=== PATIENT | male | born 1950 | race Caucasian/White ===

== ENCOUNTER → 2024-02-11 10:59 | Outpatient (REF) | payer OTHER, SELFPAY | LOC: RAD 10:59 | PROVIDERS: ATTENDING PHYSICIAN Family Medicine | DX: R10.31 Right lower quadrant pain (principal) | CPT/HCPCS: 73523 ==

== ENCOUNTER → 2024-04-19 12:31 | Outpatient (REF) | payer OTHER, SELFPAY | LOC: RCS 12:31 | PROVIDERS: ATTENDING PHYSICIAN Specialist; FAMILY PHYSICIAN Family Medicine | DX: Z01.818 Encounter for other preprocedural examination (principal) | CPT/HCPCS: 93005 ==

== ENCOUNTER 2024-10-08 06:18 | Day surgery (SDC) | payer OTHER, SELFPAY ==
[2024-09-29 13:45] VITALS: BMI 21.2
[2024-09-29 14:05] LABS: Hematocrit 39.2 % (39.0-52.0); Hemoglobin 13.4 g/dL (13.0-18.0); Mean Corp Hgb Conc. 34.2 g/dL (33.0-37.0); Mean Corpuscular Hgb 34.2 pg (27.0-31.0); Mean Platelet Volume 10.9 fL (7.4-10.4); Platelet Count 188 10^3/uL (130-400); Red Blood Cell Count 3.92 10^6/uL (4.70-6.10); Red Cell Dist. Width 13.3 % (11.5-14.5); White Blood Cell Count 6.4 10^3/uL (4.8-10.8)
[2024-09-29 14:25] LABS: Blood Urea Nitrogen 19 mg/dl (9-20); Calcium 9.6 mg/dl (8.4-10.2); Carbon Dioxide 21 mmol/L (22-30); Chloride 103 mmol/L (98-107); Estimated Creatinine Clearance 63 ml/min; Glucose 84 mg/dl (70-99); Potassium 4.4 mmol/L (3.5-5.1); Sodium 143 mmol/L (135-145); eGFR > 60.00
--- NOTE | 2024-09-30 13:41 | PTCARENOTE ---
Abnormal EKG reviewed by Dr. Torres, no further action requested.
[2024-10-08] VITALS (9 sets, daily range): BP systolic 132–171; BP diastolic 77–88; BMI 21.2
--- NOTE | 2024-10-08 07:24 | HP.FOC2 ---
Focused History & Physical
Chief Complaint
HPI:
Chief Complaint: Right inguinal hernia
HPI / Indication for Planned Procedure: Patient is a 74-year-old male recently seen in outpatient surgical evaluation secondary to a 10-month history of right inguinal swelling. Worse at the end of the day. Painful at times until he reduces the
hernia at which point his symptoms are alleviated. No associated GI or symptoms.
Relevant Past Medical History: Other (Hyperlipidemia, IBS, hypothyroidism, depression with anxiety)
Relevant Social History: Negative
Relevant Family History: Negative
Relevant Past Surgical History: Positive for (Tonsils, cataracts, right hip replacement)
Review of Systems
Review of Pertinent Systems: All Systems Negative
Medication
See Medication form for detailed medications: Yes
Medication List (including Herbals & OTC):
bupropion HCl 100 mg tablet 100 mg PO BID 10/04/24
melatonin 5 mg tablet 10 mg PO HS 10/04/24
methimazole 5 mg tablet 5 mg PO DAILY 10/04/24
rosuvastatin 5 mg tablet (Crestor) 5 mg PO DAILY 10/04/24
tamsulosin 0.4 mg capsule 0.4 mg PO DAILY 10/04/24
Medications Reviewed: Yes
Allergies and Reactions
Patient has Allergies: No
Noted Allergies and Reactions:
Allergy/AdvReac Type Severity Reaction Status Date / Time
No Known Allergies Allergy Unverified 10/04/24 08:21
Pertinent Physical Exam
All Other Systems: Negative
Head/Neck: Normal
Lungs: Normal
Heart: Normal
Abdomen: Other (Reducible right inguinal hernia)
Extremities: Normal
Neurological: Normal
Diagnosis / Assessment
74-year-old male presented for scheduled operative correction symptomatic right inguinal hernia
Plan / Procedure
Robotic assisted laparoscopic repair right inguinal hernia with mesh
Anesthesia/Sedation to be done by Anesthesia Provider: Yes
--- NOTE | 2024-10-08 07:27 | W.SUR.PREOP ---
Pre-Operative Surgical Note
-
I have examined this patient prior to the performance of the scheduled procedure.
The patient's condition is unchanged from the time of the current History and
Physical and the patient is able to undergo the scheduled procedure.
[2024-10-08] MEDS: TYLENOL 1000 MG PO (07:41)
--- NOTE | 2024-10-08 09:46 | W.IMMPOSTOP ---
Addendum entered and electronically signed by Anam Roy MD 10/08/24 10:19:
#[id number]
Original Note:
Surgical Immed Post Op Note
-
Primary Surgeon: Kirill
Assisting Surgeon: Char TONY
Pre-op Diagnosis: Right inguinal hernia
Post-op Diagnosis: Right inguinal hernia, indirect
Procedure Performed: Robotic assisted laparoscopic HOA repair right inguinal hernia with mesh; 3D max large mid weight
Anesthesia Type: GETA +0.25% Marcaine
Specimen / Cultures: None
Estimated Blood Loss: 4 mL
Complications: None immediate
Operative Findings: Right indirect inguinal hernia. Cecal adhesions in the right lower quadrant which were not lysed. Direct and femoral spaces normal. Left inguinal region normal. 3D max large mid weight mesh repair secured to Erick's ligament
with interrupted 2-0 Vicryl suture and single superior lateral stitch as well. Peritoneal flap closed with 2-0 Monocryl STRATAFIX spiral.
[2024-10-08] MEDS: SUBLIMAZE 25 MCG IV ×2 (10:07→10:17)
== END 2024-10-08 11:50 | disposition home or self-care (01) ==
LOC: SDS 06:18
PROVIDERS: ATTENDING PHYSICIAN Surgery; FAMILY PHYSICIAN Family Medicine
DX: K40.90 Unilateral inguinal hernia, without obstruction or gangrene, not specified as recurrent (principal)
CPT/HCPCS: 49650; 36415; 80048; 85027; 93005; C1781

== ENCOUNTER 2025-01-13 10:26 | Emergency (ER) | payer SELFPAY ==
[2025-01-13 10:35] VITALS: BP 131/84
--- NOTE | 2025-01-13 11:17 | ED.GENMED ---
History of Present Illness
<Emerita Galvan PA-C - Last Filed: 01/13/25 12:44>
General
Chief Complaint: Male Genito-Urinary Symptoms
Source: patient
Exam Limitations: none
Time Seen by Provider: 01/13/25 10:59
History of Present Illness
History of Present Illness:
This is a 74-year-old male with past medical history of IBS, hyperlipidemia, hypothyroidism, inguinal hernia repair on the right who presents emergency department today with concerns of right groin pain for the past hour or so. Patient states that
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 Patient states that he had a lot of pain at the time but since the injury, his pain has been getting better. He is able
to walk without any difficulty. He has had no nausea or vomiting, no fevers or chills. He said no dizziness, lightheadedness, or syncopal episodes. He had a hernia repair with Dr. Roy around 3 months ago and was concerned about possible
disruption to the hernia repair. He denies testicular pain, denies dysuria, hematuria.
Review of Systems
<Emerita Galvan PA-C - Last Filed: 01/13/25 12:44>
Review of Systems
All Other Systems: ROS reviewed and negative except as documented in HPI and ROS
Phy Exam
<Emerita Galvan PA-C - Last Filed: 01/13/25 12:44>
Physical Exam
Physical Exam:
General: Patient is well appearing and in no acute distress; non-toxic
Skin: Warm and dry, no rashes or lesions
Head: Normocephalic, atraumatic
Eyes: Sclera non-icteric. EOMs intact.
Cardiac: Regular rate
Peripheral Vascular:
Pulm: Normal respiratory effort
Abdomen: No abdominal tenderness
Genitourinary: Mild tenderness to palpation in right inguinal region, no palpable mass. No inguinal lymphadenopathy. Normal testicular lie. No testicular masses no tenderness to palpation.
Musculoskeletal: Mild groin pain with right hip extension, no pain with right internal and external rotation
Neuro: CN II-XII intact, no focal neurologic deficits.
Psychiatric: Appropriate mood and affect.
Course
<Emerita Galvan PA-C - Last Filed: 01/13/25 12:44>
Vital Signs
Initial and Last Documented VS:
Initial Vital Signs
Temp Pulse Resp BP Pulse Ox
98 F 78 20 131/84 99
01/13/25 10:35 01/13/25 10:35 01/13/25 10:35 01/13/25 10:35 01/13/25 10:35
Last Documented Vital Signs
Temp Pulse Resp BP Pulse Ox
98 F 78 20 131/84 99
01/13/25 10:35 01/13/25 10:35 01/13/25 10:35 01/13/25 10:35 01/13/25 10:35
<Brent Stratton MD - Last Filed: 01/13/25 12:45>
Vital Signs
Initial and Last Documented VS:
Initial Vital Signs
Temp Pulse Resp BP Pulse Ox
98 F 78 20 131/84 99
01/13/25 10:35 01/13/25 10:35 01/13/25 10:35 01/13/25 10:35 01/13/25 10:35
Last Documented Vital Signs
Temp Pulse Resp BP Pulse Ox
98 F 78 20 131/84 99
01/13/25 10:35 01/13/25 10:35 01/13/25 10:35 01/13/25 10:35 01/13/25 10:35
<Emerita Galvan PA-C - Last Filed: 01/13/25 12:44>
MDM/Problems Addressed
Differential Diagnosis Includes:
ddx include abdominal wall strain, inguinal strain, inguinal lymmphadenopathy
MDM/Problems Addressed:
74-year-old male presents emergency department today with concerns of right groin pain. It started after picking up a heavy box. He denies any nausea or vomiting. He has no fever. On exam he is well-appearing in no acute distress no signs of trauma
no palpable mass no concern for testicular torsion. No indication for imaging at this time. Patient stable for discharge.
Chronic conditions affecting care:
htn, hyperthyroidism
<Emerita Galvan PA-C - Last Filed: 01/13/25 12:44>
*Pulse Oximetry
Patient hypoxic: no
*Critical Care Note
Total Time (30-74mins, 75-104mins- exclusive of procedures): Not Applicable
Data Reviewed
Review of Other/Old Records Reveals: Records (Reviewed history and physical from 10/08/2024 patient seen for evaluation for inguinal surgery, no hospital discharge summary to review)
Source: patient and records
<Emerita Galvan PA-C - Last Filed: 01/13/25 12:44>
Patient Management
Escalation/DeEscalation of care consider admission/obs:
pt stable for discharge
ED Attending Note
<Emerita Galvan PA-C - Last Filed: 01/13/25 12:44>
-
Portions of this chart may have been created with voice recognition software.� Occasional wrong word or��sound alike� substitutions may have occurred due to the inherent limitations of voice recognition software.
<Brent Stratton MD - Last Filed: 01/13/25 12:45>
ED Attending Note
Patient seen and examined by attending physician: Yes
I performed the substantive portion of visit, reviewed & personally made and approve the management plan that is documented in note by myself or ADAM.: Yes
ED Attending Note:
Patient with a history of a hernia repair. Was doing heavy lifting and felt sudden severe pain in his right groin. Mostly gone at this time. Just worried about his hernia. Has noticed no lump. No nausea or vomiting. No general abdominal pain.
On exam patient is nontoxic in no distress. Ambulating normally. Abdomen is soft and nontender. No inguinal swelling. No hernia. Testicles normal. Mild tenderness of the right groin but no swelling ecchymosis warmth or erythema.
Impression is groin strain. I do not feel he had any significant injury or issue with a hernia. Clinically there is no recurrent hernia. No indication for radiologic testing. No lifting pain management and follow-up
Discharge Plan
Departure
Patient Disposition: Home (Routine Discharge)
Date of Disposition: 01/13/25
Time of Disposition: 11:46
Patient with high blood pressure during this ER visit?: Yes
Condition: Good
Discharge Problem:
Right groin pain
Instructions: Groin Strain ED, BLOOD PRESSURE
Prescriptions:
No Action
bupropion HCl 100 mg Tablet
100 mg PO BID
tamsulosin 0.4 mg Capsule
0.4 mg PO DAILY
methimazole 5 mg Tablet
5 mg PO DAILY
rosuvastatin [Crestor] 5 mg Tablet
5 mg PO DAILY
melatonin 5 mg Tablet
10 mg PO HS
acetaminophen [Tylenol Extra Strength] 500 mg tablet
1,000 mg PO Q6HPRN PRN (Reason: mild pain) Qty: 1 0RF
ibuprofen 200 mg tablet
400 - 600 mg PO Q6HPRN PRN (Reason: moderate pain) Qty: 1 0RF
polyethylene glycol 3350 [Miralax] 17 gram/dose powder
4 g PO DAILY PRN (Reason: Constipation) Qty: 119 0RF
Rx Instructions:
start a laxative such as MIRALAX on day 2 after surgery if no bowel movement yet as long as no nausea/vomiting and passing gas
oxycodone 5 mg tablet
5 mg PO Q4HPRN PRN (Reason: breakthrough/severe pain) Qty: 5 0RF
Stand Alone Forms: Return to Work
Activity Restrictions/Additional Instructions:
You can take Tylenol as needed for pain.
PLEASE RETURN TO EMERGENCY DEPARTMENT SHOULD YOU DEVELOP ACUTE WORSENING OF YOUR SYMPTOMS, NAUSEA VOMITING, FEVERS OR CHILLS, LIGHTHEADEDNESS OR DIZZINESS, SYNCOPAL EPISODES, OR ANY OTHER SIGNS OR SYMPTOMS WORRISOME TO YOU.
Interventions
Interventions:
*Risk Screen - Suicide Last Done: 01/13/25 10:35
*General Assessment Last Done: 01/13/25 10:35
*Neglect/Abuse Screening Last Done: 01/13/25 10:35
*Nursing Disposition Last Done: 01/13/25 12:03
Discharge Date and Time
Discharge Date/Time: 01/13/25 12:03
Print Language: HAITIAN
== END 2025-01-13 12:03 | disposition home or self-care (01) ==
LOC: EMR 10:26
PROVIDERS: EMERGENCY PHYSICIAN Emergency Medicine; FAMILY PHYSICIAN Family Medicine
DX: S39.91XA Unspecified injury of abdomen, initial encounter (principal); R10.31 Right lower quadrant pain; X50.0XXA Overexertion from strenuous movement or load, initial encounter; Y93.89 Activity, other specified; Y92.89 Other specified places as the place of occurrence of the external cause; Y99.0 Civilian activity done for income or pay; I10 Essential (primary) hypertension; E03.9 Hypothyroidism, unspecified; K58.9 Irritable bowel syndrome, unspecified; E78.5 Hyperlipidemia, unspecified
CPT/HCPCS: 99282

== ENCOUNTER → 2025-08-03 07:53 | Outpatient (REF) | payer OTHER, SELFPAY | LOC: RAD 07:53 | PROVIDERS: ATTENDING PHYSICIAN Nurse Practitioner Family | DX: M79.605 Pain in left leg (principal) | CPT/HCPCS: 93971 ==

== ENCOUNTER → 2025-09-30 08:01 | Outpatient (REF) | payer OTHER, SELFPAY | LOC: PAVMRI 08:01 | PROVIDERS: ATTENDING PHYSICIAN Student in an Organized Health Care Education/Training Program; FAMILY PHYSICIAN Nurse Practitioner Family | DX: M71.22 Synovial cyst of popliteal space [Baker], left knee (principal) | CPT/HCPCS: 73721 ==

== ENCOUNTER → 2025-10-17 08:22 | Outpatient (REF) | payer OTHER, SELFPAY | LOC: REG 08:22 | PROVIDERS: ATTENDING PHYSICIAN Nurse Practitioner Family | DX: I49.49 Other premature depolarization (principal) | CPT/HCPCS: 93005 ==

== ENCOUNTER 2025-11-13 06:50 | Emergency (ER) | payer OTHER, SELFPAY ==
[2025-11-13 07:02] VITALS: BP 151/80
--- NOTE | 2025-11-13 07:03 | ED.GENMED ---
History of Present Illness
General
Chief Complaint: Chest Pain
Source: patient
Exam Limitations: none
Time Seen by Provider: 11/13/25 06:53
History of Present Illness
History of Present Illness:
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 He was shoveling snow off his vehicle at about 3:15 in the morning. He had no symptoms while shoveling but shortly afterwards walking up to the third floor of his
apartment he developed a pounding sensation along with chest pressure. He still went to work and had this persistently for about 3 hours total. Elected to call the medics. He was given a nitroglycerin with significant relief. Currently
asymptomatic. No pleuritic pain shortness of breath diaphoresis searing pain radiation to the back neck or arms. No history of similar episode except 20 years ago when he had a negative cardiac cath
Past History
Past History
ED Past Medical History: HTN
ED Past Surgical History: Orthopedic, Tonsilectomy and Other (Cataracts)
Review of Systems
Review of Systems
All Other Systems: Not applicable
Respiratory: Reports no symptoms
ABD/GI: Reports no symptoms
Phy Exam
Physical Exam
Physical Exam:
GENERAL: Alert and oriented in no apparent distress
EYE: Orbits normal.
NECK: Supple, no significant adenopathy.
ENT: Pharynx without erythema
CARDIAC: Regular rate and rhythm without any obvious murmurs.
LUNGS: Clear breath sounds,normal
ABDOMEN: Soft, without focal tenderness or distention
NEUROLOGICAL: Alert and oriented , grossly non-focal
SKIN: Warm and dry, no rash or lesion, no discoloration, skin intact.
MUSCULOSKELETAL: No edema,no deformity.Good color
PSYCH: Normal and appropriate interaction.
Scores
Heart Score for Chest Pain Patients
STEMI patient?: No
History: Moderately Suspicious
ECG: Normal
Age: >/= 65 years
Risk Factors: 1 or 2 Risk Factors
Troponin: </= Normal Limit
Heart Score for Chest Pain Patients: 4
Heart Score Risk: 20.3% MACE over next 6 weeks
Course
Orders/Labs/Results
Orders:
Orders
11/13/25 06:53
Electrocardiogram (*1) Urgent
Reason for Study: Chest Pain
EKG- Treatment ONCE
11/13/25 07:00
Complete Blood Count/With Diff Urgent
Comprehensive Metabolic Panel Urgent
Troponin I Urgent
11/13/25 07:03
CXR2 [CR Chest - 2 Views ] Urgent
Comment:
Reason For Exam: Chest pain
11/13/25 08:19
EKG- Treatment ONCE
11/13/25 10:00
Electrocardiogram (*1) Stat
Reason for Study: Other
Other Reason for Exam: chest pain
11/13/25 10:06
Troponin I Urgent
Abnormal Lab Results
11/13/25
07:00
RBC 4.15 L 10^6/uL
(4.70-6.10)
MCV 94.5 H fL
(80.0-94.0)
MCH 33.3 H pg
(27.0-31.0)
MPV 10.6 H fL
(7.4-10.4)
Chloride 110 H mmol/L
(98-107)
Carbon Dioxide 21 L mmol/L
(22-30)
BUN 21 H mg/dl
(9-20)
Glucose 102 H mg/dl
(70-99)
11/13/25 07:00
11/13/25 07:00
Vital Signs
Initial and Last Documented VS:
Initial Vital Signs
Temp Pulse Resp
98.4 F 70 10
11/13/25 06:53 11/13/25 06:53 11/13/25 06:53
Last Documented Vital Signs
Temp Pulse Resp BP Pulse Ox
98.4 F 65 12 155/83 98
11/13/25 06:53 11/13/25 12:30 11/13/25 12:30 11/13/25 11:00 11/13/25 12:30
MDM/Problems Addressed
Differential Diagnosis Includes:
75-year-old male with exertional pounding and chest tightness prolonged for hours. Eventually resolved with nitroglycerin. Currently asymptomatic. Moderate risk factors. Does not smoke cigarettes but smokes marijuana. EKG is stable. Trending
troponin
*Pulse Oximetry
SaO2: 99
Oxygen Mode of Delivery: Room air
Patient hypoxic: no
*EKG
Interpreted by ED Provider?: Yes
Interpretation: abnormal
Comparison EKG: no changes
Heart Rate: 65
Rate: normal
Rhythm: sinus and PAC's
[place]: normal axis
Interval: normal interval
QRS Pattern: normal QRS
Ischemia: no ischemia
*Critical Care Note
Total Time (30-74mins, 75-104mins- exclusive of procedures): Not Applicable
Data Reviewed
Review of Other/Old Records Reveals: Labs and Testing
Update Note
Update Note:
Patient is remained clinically stable. Repeat EKG stable. Repeat troponin stable although minuscule he increase. However patient notes he has had some intermittent episodes of indigestion while here. Somewhat atypical of his preceding symptoms
but with a significant exertional component earlier moderate risk factors relief with nitroglycerin I feel prudent to keep the patient. He was given aspirin prehospital
1310.... Admission had been recommended. Given some recurring indigestion and symptom complex that was very reasonable for unstable angina, admission was warranted. Patient has elected to not stay in the hospital. He is fully aware of the risk of
sudden cardiac arrest heart failure debilitating heart disease etc. He will however follow-up closely.
ED Attending Note
-
Portions of this chart may have been created with voice recognition software.� Occasional wrong word or��sound alike� substitutions may have occurred due to the inherent limitations of voice recognition software.
Discharge Plan
Departure
Patient Disposition: Home (Routine Discharge)
Date of Disposition: 11/13/25
Time of Disposition: 11:09
Presentation/result/management discussed w/ accepting MD/DO: Hospitalist
Patient with high blood pressure during this ER visit?: Yes
Discharge Problem:
Exertional chest pain, Possible unstable angina
Instructions: Chest Pain DCA Follow Up, BLOOD PRESSURE
Prescriptions:
No Action
bupropion HCl 100 mg Tablet
100 mg PO BID
tamsulosin 0.4 mg Capsule
0.4 mg PO DAILY
rosuvastatin [Crestor] 5 mg Tablet
5 mg PO DAILY
melatonin 5 mg Tablet
10 mg PO HS
losartan 50 mg tablet
50 mg PO DAILY
meloxicam 15 mg tablet
15 mg PO DAILY
sildenafil 100 mg tablet
100 mg PO DAILYPRN PRN (Reason: ed)
hydroxyzine HCl 10 mg tablet
10 mg PO HSPRN PRN (Reason: sleep)
Referrals:
Elizabeth Chi CRNP [Family Provider, Family Practice]
Activity Restrictions/Additional Instructions:
Talk to the cardiology group tomorrow. Please return if you change your mind about admission or get any recurring episodes
No strenuous activity until cleared by cardiology
Interventions
Interventions:
*Risk Screen - Suicide Last Done: 11/13/25 07:03
*General Assessment Last Done: 11/13/25 07:03
*Neglect/Abuse Screening Last Done: 11/13/25 07:03
*ED COVID-19 Vaccine History Last Done: 11/13/25 07:03
*ED Influenza Vaccine History Last Done: 11/13/25 07:03
[facility] Risk Assessment Tool Last Done: 11/13/25 07:12
ED- Cardiac Assessment Last Done: 11/13/25 07:11
Discharge Date and Time
Print Language: UKRAINIAN
[2025-11-13 07:22] LABS: Hematocrit 39.2 % (39.0-52.0); Hemoglobin 13.8 g/dL (13.0-18.0); Mean Corp Hgb Conc. 35.2 g/dL (33.0-37.0); Mean Corpuscular Volume 94.5 fL (80.0-94.0); Nucleated Red Blood Cells % 0 % (-); Platelet Count 174 10^3/uL (130-400); Red Cell Dist. Width 12.0 % (11.5-14.5)
[2025-11-13 07:27] LABS: ALT (SGPT) 26 U/L (0-50); AST (SGOT) 31 U/L (17-59); Albumin 4.3 g/dl (3.5-5.0); Alkaline Phosphatase 43 U/L (38-126); Blood Urea Nitrogen 21 mg/dl (9-20); Calcium 9.0 mg/dl (8.4-10.2); Carbon Dioxide 21 mmol/L (22-30); Chloride 110 mmol/L (98-107); Glucose 102 mg/dl (70-99); Potassium 4.1 mmol/L (3.5-5.1); Sodium 139 mmol/L (135-145); Total Protein 7.0 g/dl (6.3-8.2); eGFR > 60.00
[2025-11-13 07:38] LABS: Troponin I < 0.012 ng/ml
[2025-11-13 08:00] VITALS: BP 166/76
[2025-11-13 10:00] VITALS: BP 163/91
[2025-11-13 10:39] LABS: Troponin I 0.014 ng/ml
[2025-11-13 11:00] VITALS: BP 155/83
--- NOTE | 2025-11-13 11:40 | HPS.HSE ---
Family Physician
-
Family Physician: TIM Power
Chief Complaint
-
Chest pressure
History of Present Illness
.
Medical History
Past Medical History
Past Medical History: Reports HTN, Hypercholesterolemia, Psychiatric (anxiety/depression) and Other (hyperthyroidism)
Past Surgical History: Reports Other (inguinal hernia repair )
Social History
Tobacco: Non-smoker
Alcohol: Occasional
Drug: None
Personal: Single
Living: Alone
Employment: Employed
Family History
Family History: CAD (father at 77)
Allergies / Home Medications
Allergies reflects when Allergies were last updated in [facility].
Home Medications with original date entered in [facility]
Allergy/Medication List:
Allergies
Allergy/AdvReac Type Severity Reaction Status Date / Time
No Known Allergies Allergy Verified 11/13/25 07:04
Home Medications
bupropion HCl 100 mg tablet 100 mg PO BID 10/04/24
melatonin 5 mg tablet 10 mg PO HS 10/04/24
methimazole 5 mg tablet 5 mg PO DAILY 10/04/24
rosuvastatin 5 mg tablet (Crestor) 5 mg PO DAILY 10/04/24
tamsulosin 0.4 mg capsule 0.4 mg PO DAILY 10/04/24
acetaminophen 500 mg tablet (Tylenol Extra Strength) 1,000 mg (2 x 500 mg) PO Q6HPRN PRN mild pain #1 tab 10/08/24
ibuprofen 200 mg tablet 400 - 600 mg (2 - 3 x 200 mg) PO Q6HPRN PRN moderate pain #1 tab 10/08/24
oxycodone 5 mg tablet 5 mg PO Q4HPRN PRN breakthrough/severe pain #5 tabs 10/08/24
polyethylene glycol 3350 17 gram/dose oral powder (Miralax) 4 g PO DAILY PRN Constipation #119 grams 10/08/24
Review of Systems
-
History Source: Patient
A 12 point ROS was completed and negative except as noted: Yes
Abdomen/GI: Reports Pain and Other (indigestion left chest)
Physical Exam
Vital Signs
Vital Signs
Temp Pulse Resp BP Pulse Ox
98.4 F 69 10 166/76 99
11/13/25 06:53 11/13/25 09:30 11/13/25 09:30 11/13/25 08:00 11/13/25 09:30
Physical Exam
General: Comfortable and Conversant
HEENT: NormoCephalic, Anicteric and Moist mucous membranes
Respiratory: Clear
Cardiac: S1/S2 and Regular Rhythm
GI: Soft, Non Tender, Non Distended and Normal Bowel Sounds
Musculoskeletal: No Edema
Skin: Warm and Dry
Neuro: AO x 3
Hematologic/Lymphatic: No Lymphadenopathy
Psych: Calm
Laboratory Results
-
11/13/25 07:00
11/13/25 07:00
Laboratory Results
Total Bilirubin 0.8 mg/dl (0.2-1.3) 11/13/25 07:00
AST 31 U/L (17-59) 11/13/25 07:00
ALT 26 U/L (0-50) 11/13/25 07:00
Alkaline Phosphatase 43 U/L (38-126) 11/13/25 07:00
Troponin I 0.014 ng/ml 11/13/25 10:06
Data Reviewed
-
Diagnostic Radiology: Report Reviewed by me and Discussed with Physician
Medical Tests (Nuc Med, Echo, EKG etc): Image Personally Visualized and interpreted and Report Reviewed by me
Lab Data: Labs Reviewed by me and Discussed with Physician
Impression/Plan
-
IMPRESSION:
Chest pressure left side
Essential hypertension
Hypothyroidism
Hyperlipidemia
Anxiety/depression
BPH
PLAN:
Chest pressure left-sided
Hemodynamically stable
Nitro taken prehospitalization which helped with symptoms
Admit patient for observation on tele
EKG unremarkable, troponin are normal
Chest x-ray no evidence of acute pulmonary edema/pneumonia/pleural effusion
Check treadmill stress test to evaluate for ischemia
Nitro if chest pain reoccurs.
Essential hypertension
Continue home antihypertensive medications
Hyperthyroidism
Not on methimazole, recently discontinued by primary care physician
Hyperlipidemia
Continue rosuvastatin
Anxiety/depression
Continue Wellbutrin
Continue melatonin for sleep
History of BPH
Continue tamsulosin
Full code
chol lowering diet
Lovenox
[2025-11-13 13:14] VITALS: BP 151/79
--- NOTE | 2025-11-13 13:23 | W.PN.UPDATE ---
Update Note
Progress Note Update
Medical Center was contacted to admit the patient however the patient went to leave and I signed out the case back to the ER physician, Dr Stratton.
== END 2025-11-13 13:27 | disposition home or self-care (01) ==
LOC: EMR 06:50
PROVIDERS: EMERGENCY PHYSICIAN Emergency Medicine; FAMILY PHYSICIAN Nurse Practitioner Family
DX: R07.89 Other chest pain (principal); I10 Essential (primary) hypertension
CPT/HCPCS: 99284; 71046; 80053; 84484; 85025; 93005

== ENCOUNTER → 2025-11-28 12:05 | Outpatient (REF) | payer OTHER, SELFPAY | LOC: HWRCS 12:05 | PROVIDERS: ATTENDING PHYSICIAN Internal Medicine Cardiovascular Disease; FAMILY PHYSICIAN Nurse Practitioner Family | DX: R07.89 Other chest pain (principal) | CPT/HCPCS: 78452; 93017; A9500; J2785 ==